=== PATIENT | female | born 1960 | race Caucasian/White ===

== ENCOUNTER → 2017-05-26 | Outpatient (CLI) | payer BC ==
[2017-05-26 09:15] LABS: Cholesterol 243 mg/dL (<200); HDL Cholesterol 81 mg/dL (40-60); Triglycerides 90 mg/dL (<150)
--- NOTE | 2017-05-27 13:27 | MM ---
Reason for exam: screening (asymptomatic). Last mammogram was performed 1 year ago. History: Patient is postmenopausal. Family history of breast cancer in sister at age 47. Benign right US cyst aspiration of the right breast, April 04, 2011. Cyst aspiration of the left breast, October 08, 2004. Took hormonal contraceptives for 6 months. Physical Findings: A clinical breast exam by your physician is recommended on an annual basis and results should be correlated with mammographic findings. MG Screening Mammo w CAD Bilateral CC and MLO view(s) were taken. Prior study comparison: May 21, 2016, bilateral MG screening mammo w CAD. August 20, 2013, bilateral digital screening mammo w/CAD. The breast tissue is heterogeneously dense. This may lower the sensitivity of mammography. No suspicious calcifications are seen. Increasing nodule upper outer right breast measuring 5mm approximately 8cm from nipple. This finding is changed when compared with previous exams. ASSESSMENT: Incomplete: need additional imaging evaluation, BI-RAD 0 RECOMMENDATION: Special view mammogram and ultrasound of the right breast. [facility] will attempt to contact patient to return for supplemental views and ultrasound.
== END ==
LOC: RADMAMWWP 08:10
PROVIDERS: ATTEND Obstetrics & Gynecology
DX: Z12.31 Encounter for screening mammogram for malignant neoplasm of breast (principal); E78.4 Other hyperlipidemia
CPT/HCPCS: 80061; G0202

== ENCOUNTER → 2017-06-10 | Outpatient (CLI) | payer BC ==
--- NOTE | 2017-06-11 09:00 | MM ---
Reason for exam: additional evaluation requested from abnormal screening. Last mammogram was performed less than 1 month ago. History: Patient is postmenopausal. Family history of breast cancer in sister at age 47. Benign right US cyst aspiration of the right breast, April 04, 2011. Cyst aspiration of the left breast, October 08, 2004. Took hormonal contraceptives for 6 months. Physical Findings: Nurse did not find any significant physical abnormalities on exam. MG Work Up Mamm w CAD RT ML, spot compression CC, and spot compression MLO view(s) were taken of the right breast. Prior study comparison: May 26, 2017, bilateral MG screening mammo w CAD. May 21, 2016, bilateral MG screening mammo w CAD. August 20, 2013, bilateral digital screening mammo w/CAD. The breast tissue is heterogeneously dense. This may lower the sensitivity of mammography. Partial dispersion on compression. No significant new findings when compared with previous films. These results were verbally communicated with the patient and result sheet given to the patient on 06/10/17. ASSESSMENT: Benign, BI-RAD 2 RECOMMENDATION: Routine screening mammogram of both breasts in 1 year.
== END | disposition home or self-care (01) ==
LOC: RADMAMWWP 08:18
PROVIDERS: ATTEND Obstetrics & Gynecology
DX: R92.8 Other abnormal and inconclusive findings on diagnostic imaging of breast (principal)

== ENCOUNTER → 2022-03-04 | Outpatient (CLI) | payer BC ==
--- NOTE | 2022-03-05 11:22 | MM ---
Reason for exam: screening (asymptomatic). Last mammogram was performed 4 years and 9 months ago. History: Patient is postmenopausal. Family history of breast cancer in sister at age 47. Benign right US cyst aspiration of the right breast, April 04, 2011. Cyst aspiration of the left breast, October 08, 2004. Took hormonal contraceptives for 6 months. Physical Findings: A clinical breast exam by your physician is recommended on an annual basis and results should be correlated with mammographic findings. MG 3D Screening Mammo W/Cad Bilateral CC and MLO view(s) were taken. Prior study comparison: June 10, 2017, right breast MG work up mamm w CAD RT. May 26, 2017, bilateral MG screening mammo w CAD. The breast tissue is heterogeneously dense. This may lower the sensitivity of mammography. There are benign appearing round, vascular calcifications bilaterally. There is chronic nodularity in the right breast, stable. ASSESSMENT: Benign, BI-RAD 2 RECOMMENDATION: Routine screening mammogram of both breasts in 1 year.
== END | disposition home or self-care (01) ==
LOC: RADMAMWWP 12:39
PROVIDERS: ATTEND Family Medicine
DX: Z12.31 Encounter for screening mammogram for malignant neoplasm of breast (principal)
CPT/HCPCS: 77063; 77067

== ENCOUNTER → 2023-06-12 | Outpatient (CLI) | payer BC ==
--- NOTE | 2023-06-13 08:36 | MM ---
Reason for Exam: Screening (asymptomatic). Last mammogram was performed 1 year(s) and 4 month(s) ago. Patient History: Menarche at age 15. First Full-Term at age 27. Postmenopausal. Hormonal Contraceptives for 6 months. 04/04/2011, Benign Cyst Aspiration on the right side. 10/08/2004, Cyst Aspiration on the Left side. Sister had breast cancer, age 47. Risk Values: Lanie 5 year model risk: 2.8%. NCI Lifetime model risk: 11.7%. Prior Study Comparison: 05/26/2017 Bilateral Screening Mammogram, [facility]. 06/10/2017 Right Diagnostic Mammogram, [facility]. 03/04/2022 Bilateral Screening Mammogram, [facility]. Tissue Density: The breast tissue is heterogeneously dense. This may lower the sensitivity of mammography. Findings: Analyzed By CAD. There is no suspicious group of microcalcifications or new suspicious mass in either breast. Chronic nodularity within both breasts. Overall Assessment: Benign, BI-RAD 2 Management: Screening Mammogram of both breasts in 1 year. A clinical breast exam by your physician is recommended on an annual basis and results should be correlated with mammographic findings. Note on Lanie scores and lifetime risk: 1. A Lanie score greater than 3% is considered moderate risk. If this is the case, consider specialist referral to assess eligibility for a risk reducing agent. If overall lifetime risk for the development of breast cancer is 20% or higher, the patient may qualify for future screening with alternating mammogram and breast MRI. Electronically signed and approved by: Jorge A Hopper D.O.
== END | disposition home or self-care (01) ==
LOC: RADMAMWWP 07:16
PROVIDERS: ATTEND Family Medicine
DX: Z12.31 Encounter for screening mammogram for malignant neoplasm of breast (principal); Z78.0 Asymptomatic menopausal state; Z80.3 Family history of malignant neoplasm of breast
CPT/HCPCS: 77063; 77067